=== PATIENT | male | born 1980 | race African-American/Black ===

== ENCOUNTER 2018-11-22 05:46 | Emergency (ER) | payer SELFPAY ==
[~2018-11-22] VITALS: Ht 193 cm; Wt 108.9 kg
[2018-11-22] MEDS ORDERED: MORPHINE SULFATE 10 MG/ML VIAL. IM ONE (07:45)
[2018-11-22] MEDS ORDERED: ONDANSETRON ODT 4 MG TAB.RAPDIS. PO ONE (07:45)
--- NOTE | 2018-11-22 07:52 | PHYS DOC ---
Past Medical History Past Medical History: Anxiety, Asthma Past Surgical History: No Surgical History Alcohol Use: Rarely Drug Use: Marijuana Adult General Chief Complaint Chief Complaint: BACK PAIN - NO INJURY HPI HPI Patient is a 38 year old -[place] male with history of chronic left upper lumbar/lower thoracic back pain for the past 2 year who presents with acute exacerbation of left sided back pain. Pain is described as sharp as work was deep breathing, movement and palpation. It is improved times with position change. Patient states sometimes he'll move his certain way and feel a pop and wile experience relief of symptoms. Patient does not take breathing treatment but does smoke marijuana which she states helps with the pain. Denies nausea vomiting, chest pain, shortness of breath. Patient has not been evaluated by primary care physician for his current symptoms.[] Review of Systems Review of Systems ROS as per HPI All other systems were reviewed and found to be within normal limits, except as documented in this note. Current Medications Current Medications Current Medications Medications (Trade) Dose Ordered Sig/Ramon Start Time Stop Time Status Last Admin Dose Admin Morphine Sulfate (Morphine Sulfate) 10 mg 1X ONCE 11/22/18 07:45 11/22/18 08:24 DC 11/22/18 08:30 10 MG Ondansetron HCl (Zofran Odt) 4 mg 1X ONCE 11/22/18 07:45 11/22/18 08:24 DC 11/22/18 08:24 4 MG Allergies Allergies Allergies Coded Allergies Type Severity Reaction Last Updated Verified No Known Drug Allergies 11/22/18 No Physical Exam Physical Exam Constitutional: Well developed, well nourished, moderate discomfort secondary to pain. [] HENT: Normocephalic, atraumatic, bilateral external ears normal, nose normal. [] Eyes: PERRLA, EOMI, conjunctiva normal. [] Neck: Normal range of motion, no tenderness. [] Cardiovascular:Heart rate regular rhythm, no murmur. [] Lungs & Thorax: Bilateral breath sounds clear to auscultation. [] Abdomen: Bowel sounds normal, soft, no tenderness. [] Skin: Warm, dry. [] Back: No midline tenderness, no CVA tenderness. Left upper lumbar, lower thoracic flank pain. [] Extremities: No tenderness, no edema. [] Neurologic: Alert and oriented X 3, normal motor function, normal sensory function, no focal deficits noted. [] Psychologic: Affect normal, judgement normal, mood normal. [] Current Patient Data Vital Signs Vital Signs Date Time Temp Pulse Resp B/P (MAP) Pulse Ox O2 Delivery O2 Flow Rate FiO2 11/22/18 09:09 84 16 138/96 (110) 98 Room Air 11/22/18 06:00 98.1 98.1 EKG EKG [] Radiology/Procedures Radiology/Procedures [CXR: NAD] Course & Med Decision Making Course & Med Decision Making Pertinent Labs and Imaging studies reviewed. (See chart for details) Acute on chronic back pain. Blood pressure improved with treatment. Chest x-ray negative. We'll treat supportively with PCP follow-up. Return precautions reviewed.] Dragon Disclaimer Dragon Disclaimer This electronic medical record was generated, in whole or in part, using a voice recognition dictation system. Departure Departure Impression: Primary Impression: Back pain Additional Impression: Accelerated hypertension Disposition: HOME, SELF-CARE Condition: GOOD Referrals: NO PCP (PCP) Scripts Tramadol Hcl (TRAMADOL HCL) 50 Mg Tablet 50 MG PO Q6H PRN for PAIN for 3 Days, #30 TAB 0 Refills Prov: CARMEN SCHAEFFER DO 11/22/18 Cyclobenzaprine Hcl (CYCLOBENZAPRINE HCL) 10 Mg Tablet 1 TAB PO TID, #30 TAB Prov: CARMEN SCHAEFFER DO 11/22/18 Problem Qualifiers CARMEN SCHAEFFER DO Nov 22, 2018 07:52
--- NOTE | 2018-11-22 08:10 | RAD ---
Chest, 2 views, 11/22/2018: HISTORY: Chest pain, back pain The heart size and pulmonary vascularity are normal. No pulmonary infiltrate is seen. There is no evidence of pleural fluid. IMPRESSION: No acute cardiopulmonary abnormality is detected. Electronically signed by: Kemal Elliott MD (11/22/2018 8:06 AM) [facility]
[2018-11-22 09:09] VITALS: BP 138/96
[2018-11-22] MEDS ORDERED: CYCL10TA2 PO (09:37)
[2018-11-22] MEDS ORDERED: TRAM50TA PO (09:39)
== END 2018-11-22 09:52 | disposition home or self-care (01) ==
LOC: ER 05:46
DX: M54.5 Low back pain (principal); M54.6 Pain in thoracic spine; G89.29 Other chronic pain; F12.20 Cannabis dependence, uncomplicated; R10.9 Unspecified abdominal pain; F41.9 Anxiety disorder, unspecified; J45.909 Unspecified asthma, uncomplicated
CPT/HCPCS: 71046; 96372; 99283; J2270; Q0162